=== PATIENT | female | born 1970 | race Caucasian/White ===

== ENCOUNTER 2021-06-07 01:21 | Emergency (ER) | payer BC ==
[~2021-06-07] VITALS: Ht 162.6 cm; Wt 63.5 kg
[2021-06-07 01:40] VITALS: BP_SYST 132
[2021-06-07] MEDS ORDERED: OXYCODONE/ACETAMINOPHEN 5-325 TABLET PO ONE (02:30)
[2021-06-07] MEDS: NACL 0.9% 1,000 ML IV ONE (03:12)
[2021-06-07] MEDS: METOCLOPRAMIDE HCL 10 MG/2 ML VIAL IVP ONE (03:12)
[2021-06-07] MEDS ORDERED: IBUP-1969 PO (04:42)
[2021-06-07 05:12] VITALS: BP_SYST 141
== END 2021-06-07 05:12 | disposition home or self-care (01) ==
LOC: SED 01:21
DX: S02.2XXA Fracture of nasal bones, initial encounter for closed fracture (principal); S00.83XA Contusion of other part of head, initial encounter; R11.10 Vomiting, unspecified; F10.129 Alcohol abuse with intoxication, unspecified; Z79.899 Other long term (current) drug therapy; Y90.9 Presence of alcohol in blood, level not specified; Y04.0XXA Assault by unarmed brawl or fight, initial encounter; Y93.89 Activity, other specified; Y92.89 Other specified places as the place of occurrence of the external cause; Y99.8 Other external cause status
CPT/HCPCS: 70450; 70486; 71045; 72125; 76376; 96361; 96374; 99285; J2765; J7030